=== PATIENT | female | born 1965 ===

== ENCOUNTER 2025-03-09 20:17 | Emergency (ER) | payer SELFPAY ==
[2025-03-09] MEDS: Ondansetron 4 MG/2 ML SDV ONE (20:50)
[2025-03-09] MEDS: Ondansetron 4 MG/2 ML SDV IVPUSH ONE (20:50)
[2025-03-09] MEDS: diphenhydrAMINE 50 MG/ML SDV IVPUSH ONE (20:50)
== END 2025-03-09 21:51 | disposition home or self-care (01) ==
LOC: DL.ED 20:17
DX: T63.441A Toxic effect of venom of bees, accidental (unintentional), initial encounter (principal); T78.2XXA Anaphylactic shock, unspecified, initial encounter; I10 Essential (primary) hypertension; Z88.5 Allergy status to narcotic agent; Z79.899 Other long term (current) drug therapy
CPT/HCPCS: 96374; 96375; 99284; 99285; J1200; J1308; J2405; J7030; J7620; A9270-GY

== ENCOUNTER 2025-03-21 13:11 | Emergency (ER) | payer SELFPAY ==
[2025-03-21] MEDS: methylPREDNISolone Sodium Succinate 125 MG/2 ML SDV IM ONE (13:38)
[2025-03-21 14:02] LABS: BASOPHILS PERCENT AUTO 0.3 % (0.0-1.0); EOSINOPHILS PERCENT AUTO 0.7 % (1.0-3.0); LYMPHOCYTES PERCENT AUTO 26.2 % (20.5-50.1); MONOCYTES PERCENT AUTO 7.0 % (2-8); NEUTROPHILS PERCENT AUTO 65.8 % (42.2-75.2); PLATELET COUNT,PLT 205 10^3/uL (150-450); RED BLOOD CELL COUNT 3.56 10^6/uL (4.2-5.4); WHITE BLOOD CELL COUNT,WBC 5.9 10^3/uL (5.0-10.0)
[2025-03-21 14:05] LABS: APPEARANCE,URINE CLEAR (CLEAR); GLUCOSE,URINE NEGATIVE (NEGATIVE); OCCULT BLOOD,URINE NEGATIVE (NEGATIVE)
[2025-03-21 14:08] LABS: AMPHETAMINES,URINE NEGATIVE (NEGATIVE); BARBITURATES,URINE NEGATIVE (NEGATIVE); MDMA (ECSTASY), URINE NEGATIVE (NEGATIVE); METHAMPHETAMINES,URINE NEGATIVE (NEGATIVE); OPIATES,URINE NEGATIVE (NEGATIVE); OXYCODONE,URINE NEGATIVE (NEGATIVE); PHENCYCLIDINE,URINE NEGATIVE (NEGATIVE); TCA,URINE NEGATIVE (NEGATIVE)
[2025-03-21 14:26] LABS: A/G RATIO 1.1; ALANINE AMINOTRANSFERASE,ALT 195 U/L (14-59); ASPARTATE AMNIOTRANSFERASE,AST 345 U/L (15-37); BILIRUBIN TOTAL 0.3 mg/dL (0.2-1.0); BLOOD UREA NITROGEN,BUN 10 mg/dL (7-18); CARBON DIOXIDE,CO2 23 mmol/L (21-32); CHLORIDE,CL 107 mmol/L (98-107); CREATININE 0.77 mg/dL (0.55-1.02); EST CRCL DRUG DOSING (CG) 75.46 mL/min; ESTIMATED GFR 90 mL/min (>=60); ETHANOL BLOOD MEDICAL 284 mg/dL (0); GLUCOSE RANDOM 89 mg/dL (70-99); LACTIC ACID 2.1 mmol/L (0.4-2.0); PHOSPHORUS 3.7 mg/dL (2.6-4.7); POTASSIUM,K 3.6 mmol/L (3.5-5.1); PROTEIN TOTAL,TP 7.7 g/dL (6.4-8.2); SODIUM,NA 145 mmol/L (136-145)
[2025-03-21 14:27] LABS: INR 1.0 (0.9-1.2); PTT,PARTIAL THROMBOPLSTIN TIME 23.8 SEC (22.0-34.0)
[2025-03-21 14:29] LABS: B-TYPE NATRIURETIC PEPTIDE,BNP 59 pg/ml (0-100)
== END 2025-03-21 14:00 | disposition left against medical advice (07) ==
LOC: DL.ED 13:11
DX: R06.02 Shortness of breath (principal); F17.200 Nicotine dependence, unspecified, uncomplicated; I10 Essential (primary) hypertension; Z88.5 Allergy status to narcotic agent; Z79.899 Other long term (current) drug therapy
CPT/HCPCS: 36415; 71045; 80053; 80305; 80307; 81003; 83605; 83880; 84100; 84484; 85025; 85610; 85730; 86140; 87040; 93005; 94640; 96372; 99285; J2919; J7620; A9270-GY